=== PATIENT | male | born 1975 | race Caucasian/White ===

== ENCOUNTER 2021-05-14 18:16 | Emergency (ER) | payer OTHER ==
[~2021-05-14 18:16] MED LIST: CIPRO500 MG PO; IBUPROFEN600 MG PO; NORCO 5-325 TA1 EACH PO
[2021-05-14] MEDS ORDERED: NAPROXEN500 MG PO (18:38)
[2021-05-14] MEDS ORDERED: ZOFRAN4 MG PO (18:38)
== END 2021-05-14 18:45 | disposition home or self-care (01) ==
LOC: ER1 18:16
DX: L72.8 Other follicular cysts of the skin and subcutaneous tissue (principal); Z88.5 Allergy status to narcotic agent; F17.210 Nicotine dependence, cigarettes, uncomplicated
CPT/HCPCS: 99282